=== PATIENT | male | born 1985 | race American Indian/Alaskan Native ===

== ENCOUNTER 2018-03-06 16:34 | Emergency (ER) | payer SELFPAY ==
[2018-03-06 17:02] LABS: Basophils % (Auto) 0.3 % (0.0-1.8); Eosinophils % (Auto) 0.1 % (0.0-4.3); Hemoglobin 15.9 gm/dl (11.8-15.2); Lymphocytes # (Auto) 1.6 K/mm3 (1.2-5.4); Lymphocytes % (Auto) 16.1 % (13.4-35.0); Mean Corpuscular HGB Conc 35 % (32-34); Mean Corpuscular Hemoglobin 29 pg (28-32); Mean Corpuscular Volume 84 fl (84-94); Monocytes # (Auto) 0.8 K/mm3 (0.0-0.8); Platelet Count 163 K/mm3 (140-440); Red Blood Count 5.46 M/mm3 (3.65-5.03)
[2018-03-06 17:19] LABS: Alanine Aminotransferase 14 units/L (7-56); Albumin 4.2 g/dL (3.9-5); BUN/Creatinine Ratio 10; Blood Urea Nitrogen 9 mg/dL (9-20); Calcium 8.6 mg/dL (8.4-10.2); Hemolysis Index 4
--- NOTE | 2018-03-06 20:14 | Emergency Department Report ---
ED General Adult HPI - General Chief complaint: Pain General Stated complaint: BODY PAIN Time Seen by Provider: 03/06/18 20:12 Source: patient Mode of arrival: Ambulatory Limitations: No Limitations - History of Present Illness Initial comments: 33-year-old male past medical history HIV high viral load and CD4 count last checked at approximately 2-300 on [address] presents with complaint of 3 days of bodyaches dark-colored urine sore throat fever chills and cough. Patient is awake alert and oriented 3. Also states he has slightly increased urinary frequency and is likely possibly been exposed to an STD. Onset/Timin -: days(s) Location: mouth Radiation: non-radiation Quality: burning Consistency: intermittent - Related Data Previous Rx's Medication Instructions Recorded Last Taken Type Azithromycin [Zithromax] 1,000 mg PO ONCE #4 tablet 03/06/18 Unknown Rx Ibuprofen [Motrin] 600 mg PO Q8H PRN #20 tablet 03/06/18 Unknown Rx Levofloxacin [Levaquin TAB] 500 mg PO QDAY #5 tablet 03/06/18 Unknown Rx Allergies Allergy/AdvReac Type Severity Reaction Status Date / Time No Known Allergies Allergy Unverified 03/06/18 16:37 ED Review of Systems ROS: Stated complaint: BODY PAIN Other details as noted in HPI Constitutional: denies: chills, fever Eyes: denies: eye pain, eye discharge, vision change ENT: denies: ear pain, throat pain Respiratory: denies: cough, shortness of breath, wheezing Cardiovascular: denies: chest pain, palpitations Endocrine: no symptoms reported Gastrointestinal: denies: abdominal pain, nausea, diarrhea Genitourinary: denies: urgency, dysuria Musculoskeletal: denies: back pain, joint swelling, arthralgia Skin: denies: rash, lesions Neurological: denies: headache, weakness, paresthesias Psychiatric: denies: anxiety, depression Hematological/Lymphatic: denies: easy bleeding, easy bruising ED Past Medical Hx - Past Medical History Hx Asthma: Yes Hx HIV: Yes - Surgical History Past Surgical History?: No - Social History Smoking Status: Never Smoker Substance Use Type: Marijuana - Medications Home Medications: Home Medications Medication Instructions Recorded Confirmed Last Taken Type Azithromycin [Zithromax] 1,000 mg PO ONCE #4 tablet 03/06/18 Unknown Rx Ibuprofen [Motrin] 600 mg PO Q8H PRN #20 tablet 03/06/18 Unknown Rx Levofloxacin [Levaquin TAB] 500 mg PO QDAY #5 tablet 03/06/18 Unknown Rx ED Physical Exam - General Limitations: No Limitations General appearance: alert, in no apparent distress - Head Head exam: Present: atraumatic, normocephalic - Eye Eye exam: Present: normal appearance, PERRL, EOMI - ENT ENT exam: Present: mucous membranes moist - Expanded ENT Exam Expanded Throat exam: Positive: tonsillar erythema (bilateral tonsillar erythema uvula is midline 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 Absent: respiratory distress - Cardiovascular Cardiovascular Exam: Present: regular rate, normal rhythm. Absent: systolic murmur, diastolic murmur, rubs, gallop - GI/Abdominal GI/Abdominal exam: Present: soft, normal bowel sounds - Rectal Rectal exam: Present: deferred - Extremities Exam Extremities exam: Present: normal inspection - Back Exam Back exam: Present: normal inspection - Neurological Exam Neurological exam: Present: alert, oriented X3, CN II-XII intact, normal gait - Psychiatric Psychiatric exam: Present: normal affect, normal mood - Skin Skin exam: Present: warm, dry, intact, normal color. Absent: rash ED Course Vital Signs 03/06/18 03/06/18 03/06/18 16:37 20:31 22:44 Temperature 98.4 F 98.5 F Pulse Rate 99 H 92 H Respiratory 18 18 16 Rate Blood Pressure 112/73 Blood Pressure 103/72 [Left] O2 Sat by Pulse 99 99 Oximetry ED Medical Decision Making - Lab Data Result diagrams: 03/06/18 16:46 03/06/18 16:46 - Medical Decision Making A/P: Strep throat, urinary tract infection 1-as this patient is HIV positive we'll treat empirically for both positive strep test and positive urinalysis 2-follow-up with primary care 3-labs otherwise unremarkable. Chest x-ray shows no obvious large consolidation 4-GC urine culture sent. pt stated he may have been exposed to GC but is unsure , I advised him to follow up result with medical records within 3-5 days. Pt reports no urethral dc at this time. i'll empirically treat as he is immunocompromised. Critical care attestation.: If time is entered above; I have spent that time in minutes in the direct care of this critically ill patient, excluding procedure time. ED Disposition Clinical Impression: Strep throat UTI (urinary tract infection) Qualifiers: Urinary tract infection type: acute cystitis Hematuria presence: without hematuria Qualified Code(s): N30.00 - Acute cystitis without hematuria Disposition: TO HOME OR SELFCARE Is pt being admited?: No Does the pt Need Aspirin: No Condition: Stable Instructions: Nonspecific Urethritis in Men (ED), Urinary Tract Infection in Men (ED), Strep Throat (ED) Prescriptions: Azithromycin [Zithromax] 1,000 mg PO ONCE #4 tablet Ibuprofen [Motrin] 600 mg PO Q8H PRN #20 tablet PRN Reason: Pain Levofloxacin [Levaquin TAB] 500 mg PO QDAY #5 tablet Referrals: JUNIE PRESTON MD [Primary Care Provider] - 3-5 Days [facility] [Outside] - 3-5 Days Forms: Work/School Release Form(ED) Time of Disposition: 21:36
[2018-03-06] MEDS ORDERED: TYLENOL PO ONE (20:21)
[2018-03-06 20:48] LABS: Bilirubin,Urine NEG (Negative); Blood,Urine NEG (Negative); Mucus,Urine 2+ /HPF; Sperm,Urine 1+ /HPF (NP)
[2018-03-06 20:51] LABS: Color,Urine Dark Yellow (Yellow)
[2018-03-06] MEDS ORDERED: BICILLIN L-A IM ONE (21:15)
[2018-03-06] MEDS ORDERED: LEVAQUIN PO ONE (21:26)
[2018-03-06] MEDS ORDERED: ROCEPHIN IM ONE ×2 (21:37→21:39)
[2018-03-06] MEDS ORDERED: XYLOCAINE 1% MPF 5 mL INFILTRATI ONE ×2 (21:37→21:39)
--- NOTE | 2018-03-06 21:48 | XRay Report ---
FINAL REPORT PROCEDURE: XR CHEST ROUTINE 2V TECHNIQUE: PA and lateral chest radiographs were obtained. CPT 81150 HISTORY: cough, fever, HIV+ COMPARISON: No prior studies are available for comparison. FINDINGS: Heart: Normal. Mediastinum/Vessels: Normal. Lungs/Pleural space: Normal. Bony thorax: No acute osseous abnormality. Other: IMPRESSION: Normal examination.
[2018-03-06 22:45] VITALS: BP 103/72
== END 2018-03-06 22:46 | disposition home or self-care (01) ==
LOC: ED 16:34
DX: J02.0 Streptococcal pharyngitis (principal); N39.0 Urinary tract infection, site not specified; J45.909 Unspecified asthma, uncomplicated
CPT/HCPCS: 36415; 71046; 80053; 81001; 82550; 83690; 85025; 87086; 87430; 96372; 99284; J0696